=== PATIENT | male | born 1965 ===

== ENCOUNTER 2017-04-14 14:18 | Emergency (ER) | payer BC ==
[2017-04-14 14:26] VITALS: BP 133/75; PULSE 76; RESP 18; TEMP 98.4; O2SAT 97
--- NOTE | 2017-04-14 15:26 | C.PDOC ---
History Of Present Illness 51 y/o male presents to the ER with a cough that has been present for a week. Patient denies any difficulty breathing, fever, sputum or chest pain. Patient has not taken any OTC meds but said that doctor usually gives him an unknown strong medicine. 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 denies: Fever, Chills Recent travel outside of the [place]: No Past Medical History Reviewed: Historical Data, Nursing Documentation, Vital Signs Vital Signs: Last Vital Signs Temp 98.4 F 04/14/17 14:23 Pulse 76 04/14/17 14:23 Resp 18 04/14/17 14:23 BP 133/75 04/14/17 14:23 Pulse Ox 97 04/14/17 21:37 - Medical History PMH: No Chronic Diseases Surgical History: No Surg Hx Family History: States: No Known Family Hx - Social History Hx Alcohol Use: No Hx Substance Use: No - Immunization History Hx Tetanus Toxoid Vaccination: No Hx Influenza Vaccination: No Hx Pneumococcal Vaccination: No Review Of Systems Except As Marked, All Systems Reviewed And Found Negative. Constitutional: Negative for: Fever, Chills Cardiovascular: Negative for: Chest Pain Respiratory: Positive for: Cough. Negative for: Shortness of Breath Physical Exam - Physical Exam Appears: Non-toxic, No Acute Distress, Other (No cough throught examination) Skin: Normal Color, Warm, Dry Head: Atraumatic, Normacephalic Eye(s): bilateral: Normal Inspection, EOMI Ear(s): Bilateral: Normal Nose: Normal Oral Mucosa: Dry Throat: Normal, No Erythema, No Exudate Neck: Normal, Supple Lymphatic: Normal Exam Chest: Symmetrical Cardiovascular: Rhythm Regular Respiratory: Normal Breath Sounds, No Accessory Muscle Use Neurological/Psych: Oriented x3, Normal Speech, Normal Cognition ED Course And Treatment O2 Sat by Pulse Oximetry: 97 (room air) Progress Note: Dsicussed signs of concern and instructed to follow up with PMD in 1-2 days for re-evaluation. Disposition - Disposition Referrals: Jovani Oliveros MD [Staff Provider] - Disposition: HOME/ ROUTINE Disposition Time: 15:16 Condition: STABLE Additional Instructions: Vaya a stapleton mdico o la clnica en 2-5 carias sin falta, para mas evaluacin. Huxley los medicamentos rehan indicado. Volver a la philip de emergencia en cualquier momento si los sntomas persisten o empeoran. Prescriptions: Benzonatate [Tessalon Perle] 100 mg PO TID PRN #15 capsule PRN Reason: Cough Fexofenadine/Pseudoephedrine [Graciela-D 12 Hour Tablet] 1 each PO BID 10 Days # 20 tab.er.12h Instructions: Upper Respiratory Infection (ED) Forms: [employer] (Guinean) Print Language: URDU - Clinical Impression Clinical Impression: Cough - Scribe Statement Edison Jones All medical record entries made by the Scribe were at my direction and personally dictated by me. I have reviewed the chart and agree that the record accurately reflects my personal performance of the history, physical exam, medical decision making, and the department course for this patient. I have also personally directed, reviewed, and agree with the discharge instructions and disposition.
== END 2017-04-14 15:31 | disposition home or self-care (01) ==
LOC: C.ER 14:18
DX: R05 Cough (principal)